=== PATIENT | male | born 1990 | race Caucasian/White ===

== ENCOUNTER 2021-05-31 17:24 | Emergency (ER) | payer SELFPAY ==
[~2021-05-31] VITALS: Ht 167.6 cm; Wt 64.4 kg
--- NOTE | 2021-05-31 17:28 | NUR ---
Patient wheelchair assisted from ambulance to bed 2.
[2021-05-31] MEDS ORDERED: NACL 0.9% 1,000 ML IV ONE (17:45)
[2021-05-31] MEDS ORDERED: LORazepam 2 MG/ML VIAL IVP ONE (17:45)
[2021-05-31 17:53] VITALS: BP 132/93
--- NOTE | 2021-05-31 18:00 | NUR ---
30 Y/O MALE BIBA HOME C/O ANXIETY X1DAY S/P DRINKING 10 BEERS AND SMOKING CANNABIS/COCAINE. DENIES PAIN. DENIES SOB. DENIES FEVER/CHILLS. WITH NAUSEA. PMH: ANXIETY NKA
[2021-05-31 18:20] LABS: BASOPHILS % (AUTO) 0.2 % (0.0-2.0); EOSINOPHILS % (AUTO) 0.1 % (0.0-4.0); HEMATOCRIT 46.2 % (36-52); HEMOGLOBIN 16.1 g/dL (12.0-18.0); LYMPHOCYTES # (AUTO) 2.2 K/uL (2.0-11.5); LYMPHOCYTES % (AUTO) 23.7 % (20.5-51.1); MEAN CORPUSCULAR HEMOGLOBIN 31 pg (27-31); MEAN CORPUSCULAR HGB CONC 35 g/dL (33-37); MEAN CORPUSCULAR VOLUME 88.1 fL (80-94); MONOCYTES % (AUTO) 10.5 % (1.7-9.3); NEUTROPHILS # (AUTO) 6.2 K/uL (1.8-7.7); NEUTROPHILS % (AUTO) 65.5 % (42.2-75.2); PLATELET COUNT (AUTO) 304 K/uL (140-450); RED BLOOD CELL COUNT(AUTO) 5.24 MIL/uL (4.20-6.10); RED CELL DISTRIBUTION WIDTH 12.8 % (11.6-13.7); WHITE BLOOD COUNT (AUTO) 9.4 K/uL (4.8-10.8)
--- NOTE | 2021-05-31 19:17 | NUR ---
Pt report given to GLEN SHAIKH. Transfer of care at this time.
--- NOTE | 2021-05-31 19:47 | NUR ---
Note jill in EDM - 05/31/21 at 1951 by MILLA Patient discharged with v/s stable. Written and verbal after care instructions given and explained. Patient alert, oriented and verbalized understanding of instructions. Ambulatory with steady gait. All questions addressed prior to discharge. ID band removed. Patient advised to follow up with PMD. Rx of IBUPROFEN given. Opportunity to ask questions provided and answered.
[2021-05-31 20:07] LABS: ALBUMIN 4.3 g/dL (3.4-5.0); ANION GAP 17.8 (8-16); CARBON DIOXIDE 25.4 mmol/L (21-32); CREATININE 0.8 mg/dL (0.6-1.3); MAGNESIUM 2.1 mg/dL (1.8-2.4); PHOSPHORUS 2.7 mg/dL (2.5-4.9); POTASSIUM 3.2 mmol/L (3.5-5.1); TOTAL BILIRUBIN 0.8 mg/dL (0.0-1.0)
--- NOTE | 2021-05-31 21:26 | NUR ---
PT CONCERNED ABOUT HIS TESTS. NERVOUS ABOUT TEST RESULTS. INFORMED PT TRESTS ARE NOT BACK YET
[2021-05-31 22:00] VITALS: BP 134/87
--- NOTE | 2021-05-31 22:00 | NUR ---
Patient discharged with v/s stable. Written and verbal after care instructions given and explained. Patient verbalized understanding. Ambulatory with steady gait. All questions addressed prior to discharge. Advised to follow up with PMD.
--- NOTE | 2021-05-31 22:14 | NUR ---
The patient's care was reviewed and supervised by Katya Robles RN.
[2021-05-31 23:16] LABS: BARBITURATE, URINE NEGATIVE ng/ml (NEG <=200); BENZODIAZEPINE, URINE NEGATIVE ng/mL (NEG <=200); CANNABINOID, URINE NEGATIVE ng/mL (NEG <=50); COCAINE, URINE NEGATIVE ng/mL (NEG <=300); OPIATE, URINE NEGATIVE ng/mL (NEG <=2000); PHENCYCLIDINE SCREEN,URINE NEGATIVE ng/mL (NEG <=25)
== END 2021-05-31 22:00 | disposition home or self-care (01) ==
LOC: MED 17:24
DX: F14.129 Cocaine abuse with intoxication, unspecified (principal); F43.20 Adjustment disorder, unspecified; R41.0 Disorientation, unspecified; F41.9 Anxiety disorder, unspecified; F12.90 Cannabis use, unspecified, uncomplicated
CPT/HCPCS: 36415; 80053; 80305; 83735; 84100; 85025; 93005; 96361; 96374; 99291; J2060; J7030

== ENCOUNTER 2021-06-20 17:48 | Emergency (ER) | payer SELFPAY ==
[~2021-06-20] VITALS: Ht 170.2 cm; Wt 63.5 kg
[2021-06-20 17:55] VITALS: BP 146/101
--- NOTE | 2021-06-20 18:54 | NUR ---
TO ER BED 2
--- NOTE | 2021-06-20 19:22 | NUR ---
assumed patient care, here for palpitations and shortness of breath. On assesment, pt noted to be anxious, talking in full sentences. Blood work was collected and awaiting for results.
[2021-06-20 20:02] LABS: BASOPHILS # (AUTO) 0.1 K/uL (0.00-0.22); BASOPHILS % (AUTO) 0.6 % (0.0-2.0); EOSINOPHILS % (AUTO) 0.3 % (0.0-4.0); HEMATOCRIT 46.9 % (36-52); HEMOGLOBIN 16.4 g/dL (12.0-18.0); LYMPHOCYTES # (AUTO) 2.2 K/uL (2.0-11.5); LYMPHOCYTES % (AUTO) 24.1 % (20.5-51.1); MEAN CORPUSCULAR HEMOGLOBIN 31 pg (27-31); MEAN CORPUSCULAR HGB CONC 35 g/dL (33-37); MEAN CORPUSCULAR VOLUME 88.7 fL (80-94); MONOCYTES % (AUTO) 11.3 % (1.7-9.3); NEUTROPHILS # (AUTO) 5.7 K/uL (1.8-7.7); NEUTROPHILS % (AUTO) 63.7 % (42.2-75.2); PLATELET COUNT (AUTO) 320 K/uL (140-450); RED BLOOD CELL COUNT(AUTO) 5.29 MIL/uL (4.20-6.10); RED CELL DISTRIBUTION WIDTH 13.1 % (11.6-13.7)
[2021-06-20] MEDS: NACL 0.9% 1,000 ML IV ONE (20:10)
[2021-06-20] MEDS: LORazepam 2 MG/ML VIAL IVP ONE (20:11)
[2021-06-20] MEDS: ONDANSETRON 4 MG/2 ML VIAL IVP ONE (20:11)
[2021-06-20 20:23] LABS: ALBUMIN 4.6 g/dL (3.4-5.0); ANION GAP 13.1 (8-16); CARBON DIOXIDE 27.1 mmol/L (21-32); CREATININE 0.7 mg/dL (0.6-1.3); POTASSIUM 4.2 mmol/L (3.5-5.1); TOTAL BILIRUBIN 0.7 mg/dL (0.0-1.0)
[2021-06-20 22:09] VITALS: BP 132/81
--- NOTE | 2021-06-20 22:09 | NUR ---
pt cleared for discharge with Dr. Albarran, IV line discontinued, vs rechecked and stable. Exited Ed with steady gait and stable VS.
[2021-06-21] MEDS ORDERED: chlordiazePOXIDE 25 MG CAP PO SCH (09:00)
== END 2021-06-20 22:09 | disposition home or self-care (01) ==
LOC: MED 17:48
DX: R07.9 Chest pain, unspecified (principal); T40.5X5A Adverse effect of cocaine, initial encounter; F41.9 Anxiety disorder, unspecified; R06.02 Shortness of breath; R11.0 Nausea; Y92.89 Other specified places as the place of occurrence of the external cause
CPT/HCPCS: 36415; 71045; 80053; 84484; 85025; 93005; 96361; 96374; 96375; 99285; J2060; J2405; J7030; Q0092